=== PATIENT | female | born 1985 | race Two or more races ===

== ENCOUNTER 2019-11-07 22:39 | Emergency (ER) | payer SELFPAY ==
[~2019-11-07] VITALS: Ht 167.6 cm; Wt 65.9 kg
[2019-11-08 01:24] VITALS: BP 119/71
== END 2019-11-08 01:40 | disposition home or self-care (01) ==
LOC: EMS 22:40
DX: F41.9 Anxiety disorder, unspecified (principal)
CPT/HCPCS: 93005